=== PATIENT | female | born 1945 | race Caucasian/White ===

== ENCOUNTER 2023-04-21 12:54 | Outpatient (OUT) | payer MEDICARE, SELFPAY ==
--- NOTE | 2023-04-21 13:00 | VEIN_ITS ---
Patient: RAMIREZ MESSINA Exam Date: 04/21/2023 : 1945 Gender:F Ordering : NON-STAFF PHYSICIAN Admission #: [id number] Family : Order #: [id number] CLICK HERE TO VIEW EXAM RADIOLOGY REPORT PROCEDURE: VC EXT VENOUS REFLUX QUITA LMTD COMPARISON: None. INDICATIONS: Pain due to varicose veins of bilateral legs I83.813 TECHNIQUE: Duplex imaging of the lower extremity to assess the deep and superficial venous system for the presence of deep or superficial venous incompetence and to document the location and severity of disease. The study includes evaluation of the great saphenous vein (GSV), anterior accessory saphenous vein (AASV) and small saphenous vein (SSV). Patient scanned in reverse Trendelenburg and standing. FINDINGS: RIGHT LOWER EXTREMITY: Saphenofemoral Junction Reflux: Yes 7.3mm 0.7 sec GSV: Diam (mm) Reflux/ Time (sec) Proximal Thigh 5.7 Yes 0.9 Mid Thigh 4.1 Yes 1.0 Distal Thigh 4.6 No Prox Calf 3.5 No Mid Calf 3.6 Yes 0.7 Saphenopopliteal Junction Reflux: 1.9mm No SSV: Proximal Calf 1.9 No Mid Calf 1.7 No AASV: Not present Proximal Thigh Mid Thigh Distal Thigh Thrombi: No acute or chronic thrombus visualized Compressibility: Normal Flow: Normal Preforator:Dist/med calf 3.0mm with 0s reflux. Mid/med calf with 3.9mm with 0s reflux. Tech Note: Incompetent SFJ and GSV. Patent varicose vein dist/med calf off of GSV 2.3mm with 0s reflux. Patent varicose vein medial knee 2.3mm with 0.7s reflux. LEFT LOWER EXTREMITY: Saphenofemoral Junction Reflux: Yes 8.0 mm 1.3 sec GSV: Diam (mm) Reflux/Time (sec) Proximal Thigh 5.8 Yes 1.2 Mid Thigh 5.0 No Distal Thigh 4.5 No Prox Calf 2.8 Yes 0.8 Mid Calf 2.8 No Saphenopopliteal Junction Relux: 1.8 mm No SSV: Proximal Calf 2.1 No Mid Calf 2.2 No AASV: Not present Proximal Thigh Mid Thigh Distal Thigh Thrombi: No acute or chronic thrombus visualized Compressibility: Normal Flow: Normal Monitoring Analyst:Mid/med calf 2.7mm with 0s reflux. Tech Note: Incompetent SFJ and GSV. Patent varicose vein medial knee 2.5mm with 0s reflux. CONCLUSION: 1. A few segments of minimal abnormal dilation and mild reflux within the great saphenous vein bilaterally. Dictated by: Juwan Ortiz M.D. on 04/21/2023 at 13:50 Approved by: Juwan Ortiz M.D. on 04/21/2023 at 14:06
--- NOTE | 2023-04-21 13:00 | VEIN_ITS ---
Patient: RAMIREZ MESSINA Exam Date: 04/21/2023 : 1945 Gender:F Ordering : NON-STAFF PHYSICIAN Admission #: [id number] Family : Order #: [id number] CLICK HERE TO VIEW EXAM RADIOLOGY REPORT PROCEDURE: FACILITY [facility] - OFFICE VISIT INITIAL COMPARISON: None. PROGRESS NOTES: [age] year old female who presents with a 3 year history of leg swelling, ankle pain, stinging. The patient's leg symptoms are symmetric bilaterally. There has been a progression of symptoms over past 3 years. This increases with prolonged standing. The patient describes an improvement with rest and elevation. The patient denies any signs and symptoms to suggest arterial ischemia. The patient describes a family history of heart disease and cancer. The patient has drinking and smoking history of : Occasional alcohol consumption; no tobacco use. Patient has a past medical history significant for cellulitis, hypertension, peripheral neuropathy, gout. The patient denies a history of deep venous thrombus or pulmonary embolus. See separate history and physical for medication list. No prior treatment for varicose or spider veins. Current use of compression stockings. After review of nurse notes, history and physical exam I discussed at length the pathophysiology of venous hypertension and possible treatments, therapies and strategies available. We discussed at length the importance of elevating the lower extremities above the level of the heart, increased physical activity and compression stocking use. Ultrasound venous reflux study performed today was discussed at length with the patient. The report demonstrates no significant contributing vein dilation or reflux. PHYSICAL EXAM: The right leg demonstrates no significant varicosities, no significant spider veins, no ulceration, mild edema, erythema of the skin but no hemosiderin staining/ discoloration. The left leg demonstrates no significant varicosities, no significant spider veins, no ulceration, mild edema, erythema of the skin, but no hemosiderin staining/discoloration. Both thighs, legs and feet were symmetrically warm to the touch. Good posterior tibial and dorsalis pedis pulses were present bilaterally. IMPRESSION: 1. No significant venous insufficiency 2. No significant lower extremity varicose veins 3. Mild bilateral lower extremity subcutaneous edema 4. No flow significant arterial disease 5. CEAP: C3, AN, AN, PN PLAN: 1. Continued use of compression stockings 2. Elevated legs and increased physical activity symptomatic relief 3. Return to Dr. Dolce for further care. Nurse notes, history and physical were reviewed and confirmed, see attached forms. The nurse was present throughout the physical exam and consultation Dictated by: Juwan Ortiz M.D. on 04/21/2023 at 14:06 Approved by: Juwan Ortiz M.D. on 04/21/2023 at 14:16
== END 2023-04-21 12:55 ==
LOC: VC 12:57
DX: I83.813 Varicose veins of bilateral lower extremities with pain (principal); R60.0 Localized edema
CPT/HCPCS: 93970; G0463